=== PATIENT | male | born 1940 | race Caucasian/White ===

== ENCOUNTER → 2020-12-27 | Outpatient (CLI) | payer OTHER | LOC: RAD 08:56 | DX: R13.10 Dysphagia, unspecified (principal) | CPT/HCPCS: 74220 ==

== ENCOUNTER → 2021-02-11 | Day surgery (SDC) | payer OTHER ==
[~2021-02-11] MED LIST: ALLERGY RELIEF10 M1 PO; ATORVASTATIN CA80 MG PO; CLOPIDOGREL75 MG PO; CYCLOBENZAPRINE10 MG PO; GLIPIZIDE ER10 MG PO; GLUCOPHAGE 500500 MG PO; JANUVIA100 MG PO; LOPRESSOR 50 MG50 MG PO; LOSARTAN POTAS100 MG PO; LOW DOSE ASPIRI81 MG PO; MONTELUKAST SOD10 MG PO; NORVASC5 MG PO; PROTONIX40 M1 PO
== END | disposition home or self-care (01) ==
LOC: OR 07:18
DX: K22.70 Barrett's esophagus without dysplasia (principal); K21.00 Gastro-esophageal reflux disease with esophagitis, without bleeding; K22.2 Esophageal obstruction; K44.9 Diaphragmatic hernia without obstruction or gangrene; E11.9 Type 2 diabetes mellitus without complications; I10 Essential (primary) hypertension; I25.10 Atherosclerotic heart disease of native coronary artery without angina pectoris; E66.3 Overweight; Z68.28 Body mass index [BMI] 28.0-28.9, adult; Z86.73 Personal history of transient ischemic attack (TIA), and cerebral infarction without residual deficits; Z87.891 Personal history of nicotine dependence; Z95.5 Presence of coronary angioplasty implant and graft; Z79.82 Long term (current) use of aspirin; Z79.02 Long term (current) use of antithrombotics/antiplatelets; Z79.84 Long term (current) use of oral hypoglycemic drugs; Z79.899 Other long term (current) drug therapy
CPT/HCPCS: 82962; J2704; J7040